=== PATIENT | male | born 1950 | race Caucasian/White ===

== ENCOUNTER 2018-05-10 13:10 | Inpatient (IN) | payer MEDICARE ==
[~2018-05-10] VITALS: Ht 172.7 cm; Wt 80.6 kg
[~2018-05-10 13:10] MED LIST: BENA5TAB5 PO; COEN30CA10 PO; DABI75CA4 PO; DOCU1CAP54 PO; DULO60CA PO; EFAVTAB5 PO; ERGO1CAP6 PO; FAMO-12 PO; FER325T PO; OMEG100078 PO; RALT400T PO; RANO500T PO; ROSU10TA16 PO; [UNRECOGNIZED DRUG - CODE]
[2018-05-10 13:56] LABS: Basophils # (auto) 0 uL; Lymphocytes # (auto) 0.6 uL; Monocytes # (auto) 0.7 uL; Platelet Count (auto) 125 10^3/uL (140-450); Red Cell Distribution Width 17.2 % (11.8-14.3)
[2018-05-10 14:00] LABS: Basophils % (auto) 0.6 % (0.0-2.0); Eosinophils # (auto) 0 uL; Eosinophils % (auto) 0.8 % (0.0-7.0); Hematocrit 24.2 % (41.0-53.0); Lymphocytes % (auto) 10.6 % (10.0-50.0); Mean Corpuscular Hgb Conc. 33.1 g/dL (32.0-36.0); Mean Corpuscular Volume 99.8 fL (80.0-100.0); Monocytes % (auto) 11.7 % (0.0-12.0); Neutrophils # (auto) 4.6 uL; Neutrophils % (auto) 76.3 % (37.0-80.0); Red Blood Cells 2.42 10^6/uL (4.5-5.90)
[2018-05-10 14:15] LABS: INR 1.31 (0.9-1.15); Partial Thromboplastin Time 43.4 sec (23.78-33.04); Prothrombin Time 13.8 sec (9.27-12.13)
[2018-05-10 14:18] LABS: Albumin 3.4 g/dL (3.4-5.0); BUN/Creatinine Ratio 16.8; Calcium 8.6 mg/dL (8.5-10.1); Potassium 4.6 mmol/L (3.5-5.1)
[2018-05-10 14:20] LABS: Lactic Acid w/Reflex 3.2 mmol/L (0.4-2.0)
[2018-05-10 14:23] LABS: Bilirubin, Total 1.5 mg/dL (0.2-1.0); Total Protein 7.8 g/dL (6.4-8.2)
[2018-05-10] MEDS ORDERED: ENOXAPARIN SOD 80 MG/0.8ML SYRINGE SC ONE (14:45)
[2018-05-10] MEDS ORDERED: NITROGLYCERIN 0.4 MG SL TAB SL PRN (15:15)
[2018-05-10] MEDS ORDERED: MORPHINE SULFATE 4 MG/ML SYR/VIAL IV ONE (15:15)
[2018-05-10] MEDS ORDERED: LORazepam 0.5 MG TAB PO PRN (15:15)
[2018-05-10] MEDS ORDERED: ONDANSETRON HCL 4 MG/2 ML VIAL IV ONE (15:15)
[2018-05-10] MEDS ORDERED: TEMAZEPAM 15 MG CAP PO PRN (15:15)
[2018-05-10] MEDS ORDERED: MORPHINE SULFATE 4 MG/ML SYR/VIAL IV PRN ×2 (15:15)
[2018-05-10] MEDS ORDERED: ACETAMINOPHEN 500 MG TAB PO PRN (15:15)
[2018-05-10] MEDS ORDERED: LACTULOSE 20Gm/30ML SOLN PO PRN (15:15)
[2018-05-10] MEDS ORDERED: DEXTROSE (50%) 50ML SYRG IV PRN (15:15)
[2018-05-10] MEDS: ACCU-CHEK COMFORT CURVE STRIP VI SCH ×2 (16:48→22:53)
[2018-05-10] MEDS: InsuLIN REG 1unit/0.01ml Soln (100units/ml) SC SCH ×2 (16:50→23:05)
[2018-05-10] MEDS: DOCUSATE SOD 100 MG CAP PO SCH ×2 (16:52→22:48)
[2018-05-10] MEDS ORDERED: ASCORBIC ACID 500 MG TAB PO SCH (17:00)
[2018-05-10] MEDS: FAMOTIDINE 20 MG TAB PO SCH (17:55)
[2018-05-10 18:53] LABS: Hematocrit 24.4 % (41.0-53.0); Hemoglobin 8.3 g/dL (13.5-17.5)
[2018-05-10] MEDS ORDERED: [UNRECOGNIZED DRUG - OTHER] PO SCH (22:00)
[2018-05-10] MEDS: CARVEDILOL 3.125 MG TAB PO SCH (22:48)
[2018-05-10] MEDS: ATORVASTATIN 20 MG TAB PO SCH (22:49)
[2018-05-10] MEDS: PROMETHAZINE HCL 25 MG/ML 1ML IV PRN (23:17)
[2018-05-10] MEDS: RANOLAZINE ER 500 MG TAB PO SCH (23:40)
[2018-05-11] MEDS: DABIGATRAN 75 MG CAP PO SCH ×3 (00:39→22:00)
[2018-05-11 01:10] LABS: Hematocrit 23.9 % (41.0-53.0)
[2018-05-11 04:16] VITALS: BP 119/79
[2018-05-11] MEDS: InsuLIN REG 1unit/0.01ml Soln (100units/ml) SC SCH ×4 (06:35→22:08)
[2018-05-11] MEDS: ACCU-CHEK COMFORT CURVE STRIP VI SCH ×4 (06:35→21:39)
[2018-05-11] MEDS: HYDROcodone-ACET 5/325MG TAB PO PRN ×2 (06:38→19:55)
[2018-05-11 07:47] LABS: Basophils # (auto) 0 uL; Eosinophils # (auto) 0.1 uL; Hemoglobin 7.2 g/dL (13.5-17.5); Platelet Count (auto) 117 10^3/uL (140-450); Red Cell Distribution Width 16.6 % (11.8-14.3)
[2018-05-11 07:49] LABS: Basophils % (auto) 0.8 % (0.0-2.0); Eosinophils % (auto) 1.3 % (0.0-7.0); Hematocrit 21.3 % (41.0-53.0); Lymphocytes % (auto) 19.2 % (10.0-50.0); Mean Corpuscular Hemoglobin 32.7 pg (28.0-32.0); Mean Corpuscular Hgb Conc. 33.8 g/dL (32.0-36.0); Mean Corpuscular Volume 96.5 fL (80.0-100.0); Monocytes # (auto) 0.7 uL; Neutrophils # (auto) 3.5 uL; Neutrophils % (auto) 65.7 % (37.0-80.0); Nucleated Red Blood Cells % 0.1 %; Red Blood Cells 2.21 10^6/uL (4.5-5.90); White Blood Cell 5.4 10^3/uL (4.4-10.8)
[2018-05-11 07:59] LABS: Albumin 3.1 g/dL (3.4-5.0); Calcium 8.5 mg/dL (8.5-10.1); Potassium 4.5 mmol/L (3.5-5.1)
[2018-05-11 08:00] VITALS: BP 111/75
[2018-05-11 08:06] LABS: BUN/Creatinine Ratio 19.6; Bilirubin, Total 1.8 mg/dL (0.2-1.0); Total Protein 6.9 g/dL (6.4-8.2)
[2018-05-11] MEDS: BENAZEPRIL HCL 10 MG TAB PO SCH (10:00)
[2018-05-11] MEDS: RANOLAZINE ER 500 MG TAB PO SCH ×2 (10:00→22:07)
[2018-05-11] MEDS: FUROSEMIDE 40 MG/4 ML VIAL IV SCH (10:00)
[2018-05-11] MEDS ORDERED: PANTOPRAZOLE 40 MG TAB PO SCH (10:00)
[2018-05-11] MEDS: CARVEDILOL 3.125 MG TAB PO SCH ×2 (10:00→22:00)
[2018-05-11] MEDS: NITROGLYCERIN 0.2MG/HR TOPICAL PATCH TD SCH (10:00)
[2018-05-11] MEDS: DULoxetine HCL 30 MG CAP PO SCH (10:20)
[2018-05-11] MEDS: DOCUSATE SOD 100 MG CAP PO SCH ×2 (10:20→22:07)
[2018-05-11] MEDS: FERROUS SULFATE 325 MG TAB PO SCH (10:20)
[2018-05-11 11:52] VITALS: BP 111/75
[2018-05-11 16:00] VITALS: BP 113/77
[2018-05-11] MEDS ORDERED: BICT1TAB PO (17:55)
[2018-05-11 20:00] VITALS: BP 96/58
[2018-05-11] MEDS: ATORVASTATIN 20 MG TAB PO SCH (22:08)
[2018-05-11] MEDS: FAMOTIDINE 20 MG TAB PO SCH (22:08)
[2018-05-11 23:45] VITALS: BP 116/70
[2018-05-12 05:00] VITALS: BP 113/72
[2018-05-12 05:04] LABS: Basophils # (auto) 0 uL; Eosinophils # (auto) 0.1 uL; Eosinophils % (auto) 1.3 % (0.0-7.0); Hemoglobin 7.7 g/dL (13.5-17.5); Monocytes # (auto) 0.8 uL; Neutrophils # (auto) 3.7 uL
[2018-05-12 05:06] LABS: Basophils % (auto) 0.7 % (0.0-2.0); Hematocrit 23.1 % (41.0-53.0); Lymphocytes % (auto) 17.5 % (10.0-50.0); Mean Corpuscular Hemoglobin 32.3 pg (28.0-32.0); Mean Corpuscular Hgb Conc. 33.4 g/dL (32.0-36.0); Mean Corpuscular Volume 96.8 fL (80.0-100.0); Monocytes % (auto) 14.1 % (0.0-12.0); Neutrophils % (auto) 66.4 % (37.0-80.0); Platelet Count (auto) 125 10^3/uL (140-450); Red Blood Cells 2.39 10^6/uL (4.5-5.90); White Blood Cell 5.6 10^3/uL (4.4-10.8)
[2018-05-12 05:17] LABS: BUN/Creatinine Ratio 16.7; Calcium 8.2 mg/dL (8.5-10.1); Potassium 4.5 mmol/L (3.5-5.1)
[2018-05-12] MEDS: ACCU-CHEK COMFORT CURVE STRIP VI SCH ×4 (06:45→22:00)
[2018-05-12] MEDS: InsuLIN REG 1unit/0.01ml Soln (100units/ml) SC SCH ×4 (06:46→23:08)
[2018-05-12 09:00] VITALS: BP 130/75
[2018-05-12] MEDS: FERROUS SULFATE 325 MG TAB PO SCH (10:00)
[2018-05-12] MEDS: DULoxetine HCL 30 MG CAP PO SCH (10:12)
[2018-05-12] MEDS: BENAZEPRIL HCL 10 MG TAB PO SCH (10:14)
[2018-05-12] MEDS: DOCUSATE SOD 100 MG CAP PO SCH ×2 (10:15→21:51)
[2018-05-12] MEDS: DABIGATRAN 75 MG CAP PO SCH ×2 (10:15→21:49)
[2018-05-12] MEDS: NITROGLYCERIN 0.2MG/HR TOPICAL PATCH TD SCH (10:17)
[2018-05-12] MEDS: FUROSEMIDE 40 MG/4 ML VIAL IV SCH (10:18)
[2018-05-12] MEDS: CARVEDILOL 3.125 MG TAB PO SCH ×2 (10:31→21:49)
[2018-05-12] MEDS: RANOLAZINE ER 500 MG TAB PO SCH ×2 (10:31→21:50)
[2018-05-12] MEDS: PROMETHAZINE HCL 25 MG/ML 1ML IV PRN (11:53)
[2018-05-12] MEDS ORDERED: GASTROGRAFIN 120 ML SOL ONE (12:50)
[2018-05-12 13:00] VITALS: BP 91/60
[2018-05-12 17:00] VITALS: BP 119/74
[2018-05-12 18:48] LABS: Hematocrit 22.7 % (41.0-53.0); Hemoglobin 7.7 g/dL (13.5-17.5)
[2018-05-12 21:40] LABS: Hemoglobin 7.4 g/dL (13.5-17.5)
[2018-05-12] MEDS: FAMOTIDINE 20 MG TAB PO SCH (21:50)
[2018-05-12] MEDS: ATORVASTATIN 20 MG TAB PO SCH (21:50)
[2018-05-12] MEDS: HYDROcodone-ACET 5/325MG TAB PO PRN (21:51)
[2018-05-13] MEDS ORDERED: LEVETIRACETAM 500 MG/5ML INJ IV ONE (02:35)
[2018-05-13] MEDS ORDERED: LORazepam 2MG/ML-1ML VIAL IV PRN (02:45)
[2018-05-13] MEDS ORDERED: LEVETIRACETAM INJ 1,000 MG in D5W 5% 100 ML IV SCH (03:00)
[2018-05-13] MEDS ORDERED: LORazepam 2MG/ML-1ML VIAL ONE (03:06)
[2018-05-13] MEDS: ACCU-CHEK COMFORT CURVE STRIP VI SCH ×4 (07:00→21:18)
[2018-05-13] MEDS: InsuLIN REG 1unit/0.01ml Soln (100units/ml) SC SCH ×4 (07:00→21:18)
[2018-05-13 08:00] VITALS: BP 111/69
[2018-05-13 08:58] LABS: Hematocrit 23.3 % (41.0-53.0)
[2018-05-13] MEDS ORDERED: MORPHINE SULFATE 10 MG/ML INJ 1ML SDV IV PRN ×2 (09:00)
[2018-05-13] MEDS: CARVEDILOL 3.125 MG TAB PO SCH ×2 (10:00→21:17)
[2018-05-13] MEDS: NITROGLYCERIN 0.2MG/HR TOPICAL PATCH TD SCH (10:00)
[2018-05-13] MEDS: FUROSEMIDE 40 MG/4 ML VIAL IV SCH (10:00)
[2018-05-13] MEDS: DOCUSATE SOD 100 MG CAP PO SCH ×2 (10:00→21:23)
[2018-05-13] MEDS: BENAZEPRIL HCL 10 MG TAB PO SCH (10:00)
[2018-05-13] MEDS: DABIGATRAN 75 MG CAP PO SCH ×2 (10:02→21:13)
[2018-05-13] MEDS: FERROUS SULFATE 325 MG TAB PO SCH (10:02)
[2018-05-13] MEDS: DULoxetine HCL 30 MG CAP PO SCH (10:02)
[2018-05-13] MEDS: RANOLAZINE ER 500 MG TAB PO SCH ×2 (10:02→22:00)
[2018-05-13 11:53] VITALS: BP 124/75
[2018-05-13] MEDS ORDERED: FAMOTIDINE 20 MG TAB PO ONE (12:15)
[2018-05-13 12:25] LABS: BUN/Creatinine Ratio 19.4; Calcium 8.7 mg/dL (8.5-10.1); Potassium 4.5 mmol/L (3.5-5.1)
[2018-05-13] MEDS ORDERED: PANTOPRAZOLE 40 MG TAB PO ONE (12:30)
[2018-05-13] MEDS ORDERED: EPINEPHrine HCL 1 MG/10 ML SYRG IV ONE (14:01)
[2018-05-13 15:47] VITALS: BP 115/70
[2018-05-13] MEDS: ATORVASTATIN 20 MG TAB PO SCH (21:13)
[2018-05-13] MEDS ORDERED: InsuLIN REG 1unit/0.01ml Soln (100units/ml) ONE (21:16)
[2018-05-14] VITALS: BP 99/66
[2018-05-14 04:00] VITALS: BP 123/77
[2018-05-14] MEDS: ACCU-CHEK COMFORT CURVE STRIP VI SCH ×4 (06:44→22:26)
[2018-05-14] MEDS: InsuLIN REG 1unit/0.01ml Soln (100units/ml) SC SCH ×4 (06:53→22:26)
[2018-05-14] MEDS: DABIGATRAN 75 MG CAP PO SCH ×2 (09:49→22:00)
[2018-05-14] MEDS: CARVEDILOL 3.125 MG TAB PO SCH ×2 (09:51→22:00)
[2018-05-14] MEDS: BENAZEPRIL HCL 10 MG TAB PO SCH (09:51)
[2018-05-14] MEDS: DOCUSATE SOD 100 MG CAP PO SCH ×2 (09:51→22:00)
[2018-05-14] MEDS: NITROGLYCERIN 0.2MG/HR TOPICAL PATCH TD SCH (09:52)
[2018-05-14] MEDS: FUROSEMIDE 40 MG/4 ML VIAL IV SCH (09:52)
[2018-05-14] MEDS: RANOLAZINE ER 500 MG TAB PO SCH ×2 (09:53→22:00)
[2018-05-14] MEDS: FERROUS SULFATE 325 MG TAB PO SCH (10:00)
[2018-05-14] MEDS: FAMOTIDINE 20 MG TAB PO SCH (10:00)
[2018-05-14] MEDS ORDERED: PANTOPRAZOLE 40 MG TAB PO SCH (10:00)
[2018-05-14] MEDS: HYDROcodone-ACET 5/325MG TAB PO PRN (10:23)
[2018-05-14 11:50] VITALS: BP 121/76
[2018-05-14] MEDS ORDERED: HYDROcodone-ACET 5/325MG TAB PO PRN (12:30)
[2018-05-14 15:50] VITALS: BP 117/68
[2018-05-14 19:50] VITALS: BP 114/74
[2018-05-14 22:00] VITALS: BP 107/63
[2018-05-14] MEDS: ATORVASTATIN 20 MG TAB PO SCH (22:00)
[2018-05-15] VITALS: BP 107/65
[2018-05-15 02:00] VITALS: BP 126/69
[2018-05-15 04:00] VITALS: BP 112/62
[2018-05-15 05:39] LABS: Basophils # (auto) 0 uL; Eosinophils # (auto) 0.1 uL; Lymphocytes # (auto) 0.7 uL; Monocytes # (auto) 0.6 uL
[2018-05-15 05:42] LABS: Basophils % (auto) 0.6 % (0.0-2.0); Eosinophils % (auto) 1.1 % (0.0-7.0); Hemoglobin 7.9 g/dL (13.5-17.5); Lymphocytes % (auto) 14.4 % (10.0-50.0); Mean Corpuscular Hemoglobin 33.4 pg (28.0-32.0); Mean Corpuscular Hgb Conc. 34.6 g/dL (32.0-36.0); Mean Corpuscular Volume 96.4 fL (80.0-100.0); Monocytes % (auto) 11.9 % (0.0-12.0); Neutrophils # (auto) 3.5 uL; Platelet Count (auto) 110 10^3/uL (140-450); Red Blood Cells 2.38 10^6/uL (4.5-5.90); Red Cell Distribution Width 16.7 % (11.8-14.3); White Blood Cell 4.9 10^3/uL (4.4-10.8)
[2018-05-15 05:52] LABS: Albumin 3.4 g/dL (3.4-5.0); Calcium 7.9 mg/dL (8.5-10.1); Magnesium 2.7 mg/dL (1.6-2.6); Potassium 3.9 mmol/L (3.5-5.1)
[2018-05-15 05:56] LABS: Bilirubin, Total 1.2 mg/dL (0.2-1.0); Total Protein 7.2 g/dL (6.4-8.2)
[2018-05-15] MEDS: ACCU-CHEK COMFORT CURVE STRIP VI SCH ×2 (07:00→12:00)
[2018-05-15] MEDS: InsuLIN REG 1unit/0.01ml Soln (100units/ml) SC SCH ×2 (07:00→12:10)
[2018-05-15 08:00] VITALS: BP 96/47
[2018-05-15] MEDS: FERROUS SULFATE 325 MG TAB PO SCH (10:00)
[2018-05-15] MEDS: DOCUSATE SOD 100 MG CAP PO SCH (10:00)
[2018-05-15] MEDS: DABIGATRAN 75 MG CAP PO SCH (10:34)
[2018-05-15] MEDS: FAMOTIDINE 20 MG TAB PO SCH (10:37)
[2018-05-15] MEDS: RANOLAZINE ER 500 MG TAB PO SCH (10:37)
[2018-05-15] MEDS: BENAZEPRIL HCL 10 MG TAB PO SCH (10:38)
[2018-05-15] MEDS: FUROSEMIDE 40 MG/4 ML VIAL IV SCH (10:39)
[2018-05-15] MEDS: CARVEDILOL 3.125 MG TAB PO SCH (10:40)
[2018-05-15] MEDS: NITROGLYCERIN 0.2MG/HR TOPICAL PATCH TD SCH (10:43)
[2018-05-15 12:00] VITALS: BP 91/59
[2018-05-15 12:21] VITALS: BP 91/59
== END 2018-05-15 14:53 | disposition home or self-care (01) | DRG 280 ==
LOC: EDBD 13:10 → ER 13:10 → OVERFLOW 15:20 → DOU IN ICU 05-11 03:26 → TELE-EAST 05-11 23:40 → DOU IN ICU 05-12 20:31
PROVIDERS: ADMIT Internal Medicine; ATTEND Internal Medicine Pulmonary Disease
DX: I21.4 Non-ST elevation (NSTEMI) myocardial infarction (principal); I50.43 Acute on chronic combined systolic (congestive) and diastolic (congestive) heart failure; I60.9 Nontraumatic subarachnoid hemorrhage, unspecified; J90 Pleural effusion, not elsewhere classified; R18.8 Other ascites; N17.9 Acute kidney failure, unspecified; I48.92 Unspecified atrial flutter; B20 Human immunodeficiency virus [HIV] disease; E44.1 Mild protein-calorie malnutrition; I13.0 Hypertensive heart and chronic kidney disease with heart failure and stage 1 through stage 4 chronic kidney disease, or unspecified chronic kidney disease; D69.6 Thrombocytopenia, unspecified; I25.10 Atherosclerotic heart disease of native coronary artery without angina pectoris; I48.2 Chronic atrial fibrillation; E11.69 Type 2 diabetes mellitus with other specified complication; E11.42 Type 2 diabetes mellitus with diabetic polyneuropathy; D63.8 Anemia in other chronic diseases classified elsewhere; E11.21 Type 2 diabetes mellitus with diabetic nephropathy; E11.22 Type 2 diabetes mellitus with diabetic chronic kidney disease; E78.5 Hyperlipidemia, unspecified; E11.319 Type 2 diabetes mellitus with unspecified diabetic retinopathy without macular edema; F17.210 Nicotine dependence, cigarettes, uncomplicated; G40.909 Epilepsy, unspecified, not intractable, without status epilepticus; Z81.8 Family history of other mental and behavioral disorders; H54.61 Unqualified visual loss, right eye, normal vision left eye; I25.5 Ischemic cardiomyopathy; I67.2 Cerebral atherosclerosis; Z79.02 Long term (current) use of antithrombotics/antiplatelets; Z79.899 Other long term (current) drug therapy; Z80.0 Family history of malignant neoplasm of digestive organs; Z80.1 Family history of malignant neoplasm of trachea, bronchus and lung; Z80.3 Family history of malignant neoplasm of breast; Z80.42 Family history of malignant neoplasm of prostate; Z80.8 Family history of malignant neoplasm of other organs or systems; Z82.0 Family history of epilepsy and other diseases of the nervous system; Z82.3 Family history of stroke; Z82.49 Family history of ischemic heart disease and other diseases of the circulatory system; Z82.5 Family history of asthma and other chronic lower respiratory diseases; Z82.62 Family history of osteoporosis; Z83.3 Family history of diabetes mellitus; Z86.711 Personal history of pulmonary embolism; Z86.73 Personal history of transient ischemic attack (TIA), and cerebral infarction without residual deficits; Z89.511 Acquired absence of right leg below knee; Z95.1 Presence of aortocoronary bypass graft; Z90.49 Acquired absence of other specified parts of digestive tract; Z82.61 Family history of arthritis; Z83.511 Family history of glaucoma; Z84.89 Family history of other specified conditions; Z95.5 Presence of coronary angioplasty implant and graft; Z68.27 Body mass index [BMI] 27.0-27.9, adult; N18.3 Chronic kidney disease, stage 3 (moderate)
CPT/HCPCS: 36415; 70450; 71045; 71250; 74176; 74250; 76700; 80048; 80053; 80061; 82150; 82270; 82378; 82550; 82607; 82962; 83036; 83605; 83690; 83735; 83880; 84443; 84484; 85014; 85018; 85025; 85045; 85379; 85610; 85652; 85730; 86141; 87040; 87081; 93005; 93306; 94761; 95819; 96372; 96374; 96375; A6257; G0378; J1815; J2405; J7060

== ENCOUNTER 2018-06-04 15:55 | Emergency (ER) | payer MEDICARE ==
[~2018-06-04] VITALS: Ht 170.2 cm; Wt 77.1 kg
[~2018-06-04 15:55] MED LIST changes: +BICT1TAB PO; -COEN30CA10 PO; -EFAVTAB5 PO; -RALT400T PO
[2018-06-04] MEDS ORDERED: SODIUM BICARBONATE 8.4% INJ 50ML SYRINGE IV ONE (15:56)
[2018-06-04] MEDS ORDERED: DOPamine 1600mCg/ml 400MG/250ml NSorD5 KIT/BAG IV ONE (15:56)
[2018-06-04] MEDS ORDERED: EPINEPHrine HCL 1 MG/10 ML SYRG IV ONE (15:56)
[2018-06-04] MEDS ORDERED: ATROPINE SULF 1 MG/10ml SYR IV ONE (15:56)
[2018-06-04] MEDS ORDERED: AMIODARONE HCL (50 MG/ ML) 3 ML VIAL IV ONE (15:56)
[2018-06-04 16:54] VITALS: BP 121/91
[2018-06-04 17:08] LABS: Hematocrit 26.9 % (41.0-53.0); Hemoglobin 8.6 g/dL (13.5-17.5); Mean Corpuscular Hemoglobin 31.2 pg (28.0-32.0); Mean Corpuscular Hgb Conc. 32.1 g/dL (32.0-36.0); Mean Corpuscular Volume 97.2 fL (80.0-100.0); Platelet Count (auto) 161 10^3/uL (140-450); Red Blood Cells 2.76 10^6/uL (4.5-5.90); Red Cell Distribution Width 17.1 % (11.8-14.3); White Blood Cell 10.9 10^3/uL (4.4-10.8)
[2018-06-04 17:13] LABS: Albumin 3.2 g/dL (3.4-5.0); Calcium 8.3 mg/dL (8.5-10.1); Magnesium 3.2 mg/dL (1.6-2.6)
[2018-06-04 17:15] LABS: BUN/Creatinine Ratio 18.2
[2018-06-04] MEDS ORDERED: AMIODARONE HCL 900 MG in DEXTROSE 500 ML IV SCH (17:15)
[2018-06-04 17:19] LABS: INR 1.67 (0.9-1.15); Partial Thromboplastin Time 40.1 sec (23.78-33.04); Prothrombin Time 17.4 sec (9.27-12.13)
[2018-06-04 17:20] LABS: Bilirubin, Total 2.4 mg/dL (0.2-1.0); Total Protein 7.2 g/dL (6.4-8.2)
[2018-06-04 17:21] LABS: Basophils % (manual) 0 (0.0-2.0); Blast Cells 0; Myelocytes % 0; Promyelocytes % 0
[2018-06-04 18:03] LABS: Band Neutrophils % (manual) 3; Eosinophils % (manual) 2 (0-7); Lymphocytes % (manual) 33 (10.0-50.0); Metamyelocytes % 2
[2018-06-04 18:04] LABS: Reactive Lymphocytes 1
[2018-06-04 18:06] LABS: Monocytes % (manual) 8 (0-12)
== END 2018-06-04 21:57 | disposition expired ==
LOC: ER 15:55 → EDSEX 15:58 → EDBD 15:58 → ER 21:57
DX: R41.82 Altered mental status, unspecified (principal); I13.0 Hypertensive heart and chronic kidney disease with heart failure and stage 1 through stage 4 chronic kidney disease, or unspecified chronic kidney disease; E11.22 Type 2 diabetes mellitus with diabetic chronic kidney disease; N18.9 Chronic kidney disease, unspecified; I50.9 Heart failure, unspecified; I48.91 Unspecified atrial fibrillation; E78.5 Hyperlipidemia, unspecified; Z86.73 Personal history of transient ischemic attack (TIA), and cerebral infarction without residual deficits; Z90.89 Acquired absence of other organs; Z90.49 Acquired absence of other specified parts of digestive tract; Z95.0 Presence of cardiac pacemaker; Z79.899 Other long term (current) drug therapy
CPT/HCPCS: 36415; 36600; 51702; 70450; 71045; 80053; 82805; 83735; 83880; 84484; 85007; 85027; 85610; 85730; 87070; 87205; 92950; 93005; 94761; 99291; J0171; J0282; J1265; J7060; 94002